=== PATIENT | male | born 1975 | race Caucasian/White ===

== ENCOUNTER → 2017-07-18 | Outpatient (REF) | payer OTHER | LOC: M SFHCLERA 10:44 | DX: J02.9 Acute pharyngitis, unspecified (principal) ==

== ENCOUNTER 2023-10-28 17:45 | Emergency (ER) | payer BC, OTHER ==
[~2023-10-28] VITALS: Ht 182.9 cm; Wt 108.6 kg
[2023-10-28 17:47] VITALS: BP 143/88; TEMP 97; O2SAT 98
[2023-10-28] MEDS ORDERED: CEPH500C PO (18:08)
[2023-10-28] MEDS: CEPHALEXIN 500 MG CAP PO ONE (18:11)
== END 2023-10-28 18:22 | disposition home or self-care (01) ==
LOC: M ED 17:45
DX: L03.116 Cellulitis of left lower limb (principal)

== ENCOUNTER → 2024-04-28 | Outpatient (REF) | payer BC ==
[~2024-04-28] MED LIST: CEPH500C PO
== END ==
LOC: M LAB REF 19:23
PROVIDERS: ATTEND Registered Nurse
DX: J02.9 Acute pharyngitis, unspecified (principal)

== ENCOUNTER → 2024-06-24 | Outpatient (REF) | payer BC | LOC: M LAB REF 12:46 | PROVIDERS: ATTEND Nurse Practitioner Family | DX: J06.9 Acute upper respiratory infection, unspecified (principal); Z20.828 Contact with and (suspected) exposure to other viral communicable diseases ==